=== PATIENT | male | born 1970 | race Two or more races ===

== ENCOUNTER 2019-07-19 20:10 | Emergency (ER) | payer SELFPAY ==
[~2019-07-19] VITALS: Ht 177.8 cm; Wt 102.1 kg
[2019-07-19] MEDS ORDERED: ONDANSETRON ODT 4 MG TAB.RAPDIS. PO ONE (21:15)
[2019-07-19] MEDS ORDERED: ONDA4TAB12 PO (21:15)
[2019-07-19] MEDS ORDERED: DEXAMETHASONE 4 MG TABLET PO ONE (21:15)
--- NOTE | 2019-07-19 21:15 | PHYS DOC ---
Past Medical History Past Medical History: No Pertinent History (FRANK MCFARLANE APRN) Past Surgical History: No Surgical History (FRANK MCFARLANE APRN) Alcohol Use: None Drug Use: None (FRANK MCFARLANE APRN) Attending Signature I have participated in the care of this patient and I have reviewed and agree with all pertinent clinical information above including history, exam, and recommendations. (MIKE AKHTAR MD) Adult General Chief Complaint Chief Complaint: COUGH HPI HPI Patient is a 48 year old who presents with headache, loss of appetite, nausea, vomiting, sore throat, runny nose, cough that started 4 days ago. The patient states he has had difficulty keeping fluids down at home. (FRANK MCFARLANE APRN) Review of Systems Review of Systems Constitutional: Reports fever or chills and body aches. Eyes: Denies change in visual acuity, redness, or eye pain [] HENT: Reports nasal congestion, sore throat, and runny nose. Respiratory: Reports cough. Denies shortness of breath. Cardiovascular: No additional information not addressed in HPI [] GI: Reports nausea and vomiting. Denies abdominal pain, bloody stools or diarrhea [] : Denies dysuria or hematuria [] Musculoskeletal: Denies back pain or joint pain [] Integument: Denies rash or skin lesions [] Neurologic: Reports headache, denies focal weakness or sensory changes [] Endocrine: Denies polyuria or polydipsia [] Complete systems were reviewed and found to be within normal limits, except as documented in this note. (FRANK MCFARLANE APRN) Current Medications Current Medications Current Medications Medications (Trade) Dose Ordered Sig/Lalitha Start Time Stop Time Status Last Admin Dose Admin Dexamethasone (Decadron) 10 mg 1X ONCE 07/19/19 21:15 07/19/19 21:17 DC 07/19/19 21:34 10 MG Ondansetron HCl (Zofran Odt) 4 mg 1X ONCE 07/19/19 21:15 07/19/19 21:17 DC 07/19/19 21:33 4 MG (MIKE AKHTAR MD) Allergies Allergies Allergies Coded Allergies Type Severity Reaction Last Updated Verified Penicillins Allergy Intermediate itch 09/22/15 Yes (MIKE AKHTAR MD) Physical Exam Physical Exam Constitutional: Well developed, well nourished, no acute distress, non-toxic appearance. [] HENT: Normocephalic, atraumatic, bilateral external ears normal, bilateral tympanic membranes are pearly wallis, oropharynx moist, no oral exudates, nose turbinates are inflamed. Eyes: PERRLA, EOMI, conjunctiva normal, no discharge. [] Neck: Normal range of motion, no tenderness, supple, no stridor. [] Cardiovascular:Heart rate regular rhythm, no murmur [] Lungs & Thorax: Bilateral breath sounds clear to auscultation [] Abdomen: Bowel sounds normal, soft, no tenderness, no masses, no pulsatile masses. [] Skin: Warm, dry, no erythema, no rash. [] Neurologic: Alert and oriented X 3, normal motor function, normal sensory function, no focal deficits noted. [] Psychologic: Affect normal, judgement normal, mood normal. [] (FRANK MCFARLANE APRN) Current Patient Data Vital Signs Vital Signs Date Time Temp Pulse Resp B/P (MAP) Pulse Ox O2 Delivery O2 Flow Rate FiO2 07/19/19 21:35 92 18 105/62 (76) 98 Room Air 07/19/19 20:28 99.2 99.2 (MIKE AKHTAR MD) EKG EKG [] (FRANK MCFARLANE APRN) Radiology/Procedures Radiology/Procedures [] (FRANK MCFARLANE APRN) Course & Med Decision Making Course & Med Decision Making Pertinent Labs and Imaging studies reviewed. (See chart for details) The patient appears to have the Flu clinically. Discussed with patient the importance of drinking plenty of fluids. I also discussed the importance of rest. It was discussed with the patient that she is contagious and to stay away from others until it has been a week since the start of her symptoms. Discussed with the patient that she can take Zyrtec per label instructions for runny nose. Also discussed the proper control of fever by rotating Tylenol and Ibuprofen at home. Will give the patient Decadron in the ER for symptom control. Will also prescribe Zofran for nausea. (FRANK MCFARLANE APRN) Dragon Disclaimer Dragon Disclaimer This electronic medical record was generated, in whole or in part, using a voice recognition dictation system. (FRANK MCFARLANE APRN) Departure Departure Impression: Primary Impression: Viral syndrome Disposition: 01 HOME, SELF-CARE Condition: STABLE Referrals: NO PCP (PCP) Patient Instructions: Influenza A (H1N1) Additional Instructions: Thank you for visiting [facility]. We appreciate you trusting us with your care. If any additional problems come up don't hesitate to return to visit us. Please follow up with your primary care provider so they can plan additional care if needed and know about the problem that you had. If symptoms worsen come back to the Emergency Department. Any concerning symptoms that start such as chest pain, shortness of air, weakness or numbness on one side of the body, running high fevers or any other concerning symptoms return to the ER. Please fill your medications at any pharmacy and follow the prescription instructions. Please drink plenty of fluids. If unable to keep fluids down please return to ER. Please get Tylenol and Ibuprofen over the counter. Give each medication every 6 hours as directed by the medication labels. In order to utilize the peak of the medications stagger the medications to where the child is getting one of the medications every 3 hours. For example if you give Ibuprofen at 3 PM, you then give Tylenol at 6 PM and Ibuprofen again at 9 PM, and then Tylenol at midnight. Please get Zyrtec over the counter and take per label instructions for runny nose. Scripts Ondansetron (ONDANSETRON ODT) 4 Mg Tab.rapdis 1 TAB PO PRN Q6-8HRS PRN for NAUSEA, #16 TAB Prov: FRANK MCFARLANE APRN 07/19/19 FRANK MCFARLANE APRN Jul 19, 2019 21:15 MIKE AKHTAR MD Jul 21, 2019 02:51
[2019-07-19 21:35] VITALS: BP 105/62
== END 2019-07-19 21:56 | disposition home or self-care (01) ==
LOC: ER 20:10
DX: B34.9 Viral infection, unspecified (principal); R09.89 Other specified symptoms and signs involving the circulatory and respiratory systems; R05 Cough; R63.0 Anorexia; Z88.0 Allergy status to penicillin; Z79.899 Other long term (current) drug therapy
CPT/HCPCS: 99283; J8540; Q0162